=== PATIENT | male | born 1970 | race Caucasian/White ===

== ENCOUNTER 2018-09-05 07:47 | Day surgery (SDC) | payer OTHER ==
[~2018-09-05] VITALS: Ht 172.7 cm; Wt 79.7 kg
[2018-09-05 09:10] VITALS: BP 144/101
[2018-09-05] MEDS ORDERED: SODIUM CHLORIDE 0.9% 1,000 ML IV SCH (09:14)
[2018-09-05] MEDS ORDERED: CALC400T5 PO (09:42)
[2018-09-05] MEDS ORDERED: SODI325T PO (09:42)
[2018-09-05] MEDS ORDERED: CALC0.25 PO (09:42)
[2018-09-05] MEDS ORDERED: CLON0.1T PO (09:42)
[2018-09-05] MEDS ORDERED: METO25TA35 PO (09:42)
[2018-09-05] MEDS ORDERED: CHOL2000 PO (09:42)
[2018-09-05] MEDS ORDERED: LOSA100T7 PO (09:42)
[2018-09-05] MEDS ORDERED: PLEASE ENTER ALLERGIES MC SCH (10:00)
[2018-09-05] MEDS ORDERED: PHENYLEPHRINE 10 MG/ML ONE (11:06)
[2018-09-05] MEDS ORDERED: GLYCOPYRROLATE 0.2MG/1ML, 5ML ONE (11:06)
[2018-09-05] MEDS ORDERED: ROCURONIUM 10 MG/ML,10ML ONE (11:06)
[2018-09-05] MEDS ORDERED: NEOSTIGMINE 1 MG/ML, 10ML ONE (11:06)
[2018-09-05] MEDS ORDERED: MIDAZOLAM 1 MG/ML, 2ML ONE (11:46)
[2018-09-05] MEDS ORDERED: FENTANYL PF 100 MCG/2ML ONE ×3 (11:46→13:03)
[2018-09-05] MEDS ORDERED: HEPARIN 1,000 UNITS/ML, 10ML ONE (11:56)
[2018-09-05] MEDS ORDERED: BUPIVACAINE/PF 0.5% ONE (11:56)
[2018-09-05] MEDS ORDERED: EPINEPHRINE 1 MG/ML, 1ML ONE (11:57)
[2018-09-05] MEDS ORDERED: ONDANSETRON 2MG/ML, 2ML ONE (11:59)
[2018-09-05] MEDS ORDERED: PROPOFOL 10 MG/ML, 20ML ONE (11:59)
[2018-09-05] MEDS ORDERED: CEFAZOLIN 1,000 MG ONE (11:59)
[2018-09-05] MEDS ORDERED: DEXAMETHASONE 4 MG/ML, 1ML ONE (11:59)
[2018-09-05] MEDS ORDERED: OXYcodone 5 MG/5 ML ORAL.SOL UDC PO PRN (13:00)
[2018-09-05] MEDS ORDERED: LABETALOL 5MG/ML, 20ML IV PRN (13:00)
[2018-09-05] MEDS ORDERED: PROMETHAZINE 25 MG/ML, 1ML IV PRN (13:00)
[2018-09-05] MEDS ORDERED: ACETAMINOPHEN 325 MG TABLET PO PRN (13:00)
[2018-09-05] MEDS ORDERED: hydrALAzine 20 MG/ML, 1ML IV PRN (13:00)
[2018-09-05] MEDS ORDERED: MEPERIDINE/PF 25MG/0.5ML IVPush PRN (13:00)
[2018-09-05] MEDS ORDERED: HALOPERIDOL 5 MG/ML IV PRN (13:00)
[2018-09-05] MEDS ORDERED: HYDROmorphone 1 MG/ML, 1ML IV PRN (13:00)
[2018-09-05] MEDS ORDERED: ACETAMINOPHEN 650 MG/20.3 ML UDC ONE (13:03)
[2018-09-05] MEDS ORDERED: OXYcodone 5 MG/5 ML ORAL.SOL UDC ONE (13:03)
[2018-09-05] MEDS: FENTANYL PF 100 MCG/2ML IV PRN ×2 (13:09→13:25)
== END 2018-09-05 15:15 | disposition home or self-care (01) ==
LOC: OUT 07:47
PROVIDERS: ATTEND Surgery Vascular Surgery
DX: I12.0 Hypertensive chronic kidney disease with stage 5 chronic kidney disease or end stage renal disease (principal); N18.6 End stage renal disease; Z98.890 Other specified postprocedural states; Z79.899 Other long term (current) drug therapy
CPT/HCPCS: 36415; 36821; 49324; 80047; C1750; J0171; J0690; J1100; J1644; J2370; J2405; J2704; J2710; J3010; J3490; J7030

== ENCOUNTER 2021-04-11 11:09 | Day surgery (SDC) | payer OTHER, MEDICARE ==
[~2021-04-11] VITALS: Ht 172.7 cm; Wt 79.0 kg
[~2021-04-11 11:09] MED LIST: CALC0.25 PO; CALC400T33 PO; CHOL2000 PO; CLON0.1T22 PO; LOSA100T14 PO; METO25TA35 PO; SODI325T PO
[2021-04-11 11:50] VITALS: BP 155/93
[2021-04-11 12:27] LABS: BASOPHILS % (AUTO) 1 % (0-1); EOSINOPHILS % (AUTO) 4 % (1-7); LYMPHOCYTES % (AUTO) 16 % (22-44); MEAN CORPUSCULAR HEMOGLOBIN 30.4 pg (27.5-34.5); MEAN CORPUSCULAR HGB CONC 33.8 g/dL (33.2-36.2); MEAN PLATELET VOLUME 6.6 fL (7.4-10.4); MONOCYTES % (AUTO) 8 % (2-9); NEUTROPHILS % (AUTO) 72 % (42-75); PLATELET COUNT 283 x10^3/uL (130-400); RED BLOOD COUNT 3.27 x10^6/uL (4.38-5.82); RED CELL DISTRIBUTION WIDTH 12.5 % (9.4-14.8)
[2021-04-11] MEDS ORDERED: [UNRECOGNIZED DRUG - OTHER] PO (12:30)
[2021-04-11] MEDS ORDERED: SODIUM CHLORIDE 0.9% 1,000 ML IV SCH (12:30)
[2021-04-11] MEDS ORDERED: CHLORHEXIDINE 15 ML UDC PO ONE (12:30)
[2021-04-11 12:55] LABS: INTERNATIONAL NORMALIZED RATIO 1.01 (0.93-1.1); PROTHROMBIN TIME 10.8 Seconds (9.6-11.5)
[2021-04-11] MEDS ORDERED: ONDANSETRON 2MG/ML, 2ML IVPush PRN (13:00)
[2021-04-11] MEDS ORDERED: FENTANYL PF 100 MCG/2ML IV PRN (13:00)
[2021-04-11] MEDS ORDERED: OXYcodone 5 MG/5 ML ORAL.SOL UDC PO PRN (13:00)
[2021-04-11] MEDS ORDERED: HYDROcodone/APAP 7.5-325MG/15ML UDC PO PRN (13:00)
[2021-04-11] MEDS ORDERED: HYDROmorphone 1 MG/ML, 1ML INJ IVPush PRN (13:00)
[2021-04-11] MEDS ORDERED: BUPIVACAINE/PF 0.5% ONE (13:00)
[2021-04-11] MEDS ORDERED: MEPERIDINE/PF 25MG/0.5ML IVPush PRN (13:00)
[2021-04-11] MEDS ORDERED: EPINEPHRINE 1 MG/ML, 1ML ONE (13:01)
[2021-04-11] MEDS ORDERED: MIDAZOLAM 1 MG/ML, 2ML ONE (13:26)
[2021-04-11] MEDS ORDERED: FENTANYL PF 100 MCG/2ML ONE (13:26)
[2021-04-11] MEDS ORDERED: HEPARIN 1,000 UNITS/ML, 10ML ONE (13:51)
[2021-04-11] MEDS ORDERED: OXYC5TAB2 PO (14:04)
[2021-04-11] MEDS ORDERED: OXYcodone 5 MG/5 ML ORAL.SOL UDC ONE (14:23)
== END 2021-04-11 15:55 | disposition home or self-care (01) ==
LOC: OUT 11:09
PROVIDERS: ATTEND Surgery
DX: T85.691A Other mechanical complication of intraperitoneal dialysis catheter, initial encounter (principal); N18.6 End stage renal disease; Y83.8 Other surgical procedures as the cause of abnormal reaction of the patient, or of later complication, without mention of misadventure at the time of the procedure; Z79.899 Other long term (current) drug therapy; Z86.73 Personal history of transient ischemic attack (TIA), and cerebral infarction without residual deficits; Z98.890 Other specified postprocedural states; Z20.822 Contact with and (suspected) exposure to COVID-19
CPT/HCPCS: 36415; 49325; 85025; 85610; 85730; 87635; 93005; J0171; J1644; J2250; J3010; J7030